=== PATIENT | female | born 1960 | race Caucasian/White ===

== ENCOUNTER 2019-09-09 20:44 | Inpatient (IN) | payer OTHER ==
[~2019-09-09] VITALS: Ht 167.7 cm; Wt 42.3 kg
[~2019-09-09 20:44] MED LIST: ASP81CT; CLD600T; IBP800T
[2019-09-09] MEDS ORDERED: LACTATED RINGERS 1,000 ML IV ONE (21:26)
[2019-09-09] MEDS ORDERED: KETOROLAC 30 MG/ML VIAL IVP ONE (21:30)
[2019-09-09 21:42] LABS: BASOPHILS % (AUTO) 0 % (0-10); EOSINOPHILS # (AUTO) 0.2 10^3/uL (0.0-0.3); EOSINOPHILS % (AUTO) 2 % (0-10); HEMATOCRIT 39 % (35-52); HEMOGLOBIN 13.6 G/DL (11.5-16.0); LYMPHOCYTES # (AUTO) 2.9 X 10^3 (1.0-4.0); LYMPHOCYTES % (AUTO) 30 % (12-44); MEAN CORPUSCULAR HEMOGLOBIN 35 PG (25-34); MEAN CORPUSCULAR HGB CONC 35 G/DL (32-36); MEAN CORPUSCULAR VOLUME 99 FL (80-99); MEAN PLATELET VOLUME 9.2 FL (7.4-10.4); MONOCYTES # (AUTO) 0.7 X 10^3 (0.0-1.0); MONOCYTES % (AUTO) 7 % (0-12); NEUTROPHILS # (AUTO) 5.8 X 10^3 (1.8-7.8); NEUTROPHILS % (AUTO) 61 % (42-75); PLATELET COUNT 373 10^3/uL (130-400); RED CELL DISTRIBUTION WIDTH 11.4 % (10.0-14.5); WHITE BLOOD COUNT 9.6 10^3/uL (4.3-11.0)
[2019-09-09 21:42] LABS: BILIRUBIN,URINE NEGATIVE (NEGATIVE); CLARITY,URINE CLEAR; COLOR,URINE YELLOW; GLUCOSE, URINE (UA) NEGATIVE (NEGATIVE); KETONES,URINE NEGATIVE (NEGATIVE); LEUKOCYTE ESTERASE ,URINE 2+ (NEGATIVE); NITRITE,URINE NEGATIVE (NEGATIVE); PH,URINE 5 (5-9); PROTEIN,URINE NEGATIVE (NEGATIVE)
[2019-09-09 21:57] LABS: ALANINE AMINOTRANSFERASE 16 U/L (0-55); ALKALINE PHOSPHATASE 126 U/L (40-136); AMYLASE 56 U/L (25-125); BILIRUBIN,TOTAL 0.2 MG/DL (0.1-1.0); BUN/CREATININE RATIO 26; CALCIUM 8.8 MG/DL (8.5-10.1); CARBON DIOXIDE 25 MMOL/L (21-32); CHLORIDE 100 MMOL/L (98-107); CREATININE SERUM 0.61 MG/DL (0.60-1.30); GFR ESTIMATED > 60; GLUCOSE 86 MG/DL (70-105); LIPASE 23 U/L (8-78); MAGNESIUM 1.9 MG/DL (1.6-2.4); POTASSIUM 3.7 MMOL/L (3.6-5.0); SODIUM 135 MMOL/L (135-145); TOTAL PROTEIN 6.8 GM/DL (6.4-8.2)
[2019-09-09 21:59] LABS: AMPHETAMINE SCREEN, URINE NEGATIVE (NEGATIVE); BACTERIA,URINE TRACE /HPF; BARBITURATE SCREEN URINE NEGATIVE (NEGATIVE); BENZODIAZEPINES SCREEN URINE NEGATIVE (NEGATIVE); CANNABINOID SCREEN, URINE NEGATIVE (NEGATIVE); COCAINE SCREEN URINE NEGATIVE (NEGATIVE); METHADONE STAT NEGATIVE (NEGATIVE); METHAMPHETAMINE SCREEN URINE S NEGATIVE (NEGATIVE); OPIATE SCREEN URINE NEGATIVE (NEGATIVE); OXYCODONE STAT NEGATIVE (NEGATIVE); PROPOXYPHENE STAT NEGATIVE (NEGATIVE); TRICYCLIC ANTIDEPRESSANTS SCRE NEGATIVE (NEGATIVE)
[2019-09-09 22:00] LABS: TRICHOMONAS,URINE LARGE /HPF
[2019-09-09 22:01] LABS: INR 0.9 (0.8-1.4); PROTHROMBIN TIME PATIENT 12.9 SEC (12.2-14.7)
[2019-09-09 22:02] LABS: ACETAMINOPHEN < 10 UG/ML (10-30)
[2019-09-09] MEDS ORDERED: cefTRIAXone FOR IV USE 1,000 MG in WATER (STERILE) FOR INJECTION 10 ML IV ONE (22:45)
[2019-09-09] MEDS ORDERED: metroNIDAZOLE 500MG/100ML IVPB 100 ML IV ONE (22:45)
[2019-09-09] MEDS ORDERED: cefTRIAXone 1,000 MG IV (ROCEPHIN) VIAL ONE (22:46)
[2019-09-09] MEDS ORDERED: WATER (STERILE) FOR INJECTION 10 ML ONE (22:46)
[2019-09-09] MEDS ORDERED: PANTOPRAZOLE 40 MG (PROTONIX) VIAL IV ONE (23:15)
[2019-09-10] VITALS (13 sets, daily range): BP systolic 96–129; BP diastolic 55–79
--- NOTE | 2019-09-10 00:07 | Consultation - Surgery ---
History of Present Illness History of Present Illness Patient Consulted On(eunice/time) 09/09/19 23:58 Time Seen by Provider: 23:39 History of Present Illness Surgery asked to consult regarding LUQ. HPI: Pt is a 59 yo female who presented to the ER with severe LUQ pain, rating it as 10 out of 10. Pt states she was just sitting watching football, drinking a beer "when it came out of nowhere". Pt states last week she "had a bug" with nausea and vomiting but all that eventually went away. She states she went to work today and had no problems. Pt states she has never had pain like this before. She is not sure what makes it worse, only the pain meds have so far made the pain better. Pain does not radiate anywhere. Allergies and Home Medications Allergies Coded Allergies: No Known Drug Allergies (Unverified , 09/09/19) Patient Home Medication List Home Medication List Reviewed: Yes Past Dkdflix-Cskjtk-Jytmmf Hx Patient Social History Alcohol Use: Regular Use Recreational Drug Use: No Smoking Status: Current Everyday Smoker (2 ppd) Type Used: Cigarettes Recent Foreign Travel: No Contact w/Someone Who Travel: No Recent Infectious Disease Expo: No Recent Hopitalizations: No Seasonal Allergies Seasonal Allergies: No Surgeries History of Surgeries: Yes Surgeries: Coronary Stent Respiratory History of Respiratory Disorde: No Cardiovascular History of Cardiac Disorders: No Neurological History of Neurological Disord: No 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 Genitourinary History of Genitourinary Disor: No Gastrointestinal History of Gastrointestinal Di: No Musculoskeletal History of Musculoskeletal Dis: No Endocrine History of Endocrine Disorders: No HEENT History of HEENT Disorders: No Cancer History of Cancer: No Psychosocial History of Psychiatric Problem: No Integumentary History of Skin or Integumenta: No Blood Transfusions History of Blood Disorders: No Family Medical History Significant Family History: Cancer (Father had Prostate CA), Diabetes (Father), Hypertension (Mother) Review of Systems-General Constitutional: No chills, No diaphoresis; weakness EENTM: No mouth pain, No mouth swelling, No epistaxis Respiratory: No cough, No dyspnea on exertion, No hemoptysis, No short of breath Cardiovascular: No chest pain, No edema, No palpitations Gastrointestinal: LUQ; No dysphagia, No hematemesis, No jaundice; nausea, vomiting Genitourinary: No dysuria, No frequency, No hematuria Musculoskeletal: back pain, joint pain, joint swelling, muscle stiffness Skin: No change in color, No change in hair/nails Psychiatric/Neurological: Denies Anxiety, Denies Depressed, Denies Seizure, Denies Tremors Other Pt denies any history of abnormal bleeding or bruising Physical Exam-General Problems Physical Exam Vital Signs Vital Signs - First Documented 09/09/19 21:00 Temp 36.0 Pulse 73 Resp 18 B/P (MAP) 152/89 (110) Pulse Ox 97 Capillary Refill : Less Than 3 Seconds General Appearance: mild distress, thin Eyes: Bilateral Eye PERRL, Bilateral Eye EOMI HEENT: pharynx normal; No scleral icterus (R), No scleral icterus (L) Neck: non-tender, full range of motion, supple Respiratory: chest non-tender, lungs clear, normal breath sounds, no respiratory distress, no accessory muscle use Cardiovascular: regular rate, rhythm, no murmur Gastrointestinal: normal bowel sounds, soft, no organomegaly, tenderness (LUQ) Back: no CVA tenderness, no vertebral tenderness Extremities: normal range of motion, normal inspection, no pedal edema, no calf tenderness 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, no motor/sensory deficits, alert, normal mood/affect, oriented x 3 Skin: normal color, warm/dry Lymphatic: no adenopathy (neck, axilla or groin) Data Review Labs Laboratory Tests 09/09/19 21:15: White Blood Count 9.6, Red Blood Count 3.93L, Hemoglobin 13.6, Hematocrit 39, Mean Corpuscular Volume 99, Mean Corpuscular Hemoglobin 35H, Mean Corpuscular Hemoglobin Concent 35, Red Cell Distribution Width 11.4, Platelet Count 373, Mean Platelet Volume 9.2, Neutrophils (%) (Auto) 61, Lymphocytes (%) (Auto) 30, Monocytes (%) (Auto) 7, Eosinophils (%) (Auto) 2, Basophils (%) (Auto) 0, Neutrophils # (Auto) 5.8, Lymphocytes # (Auto) 2.9, Monocytes # (Auto) 0.7, Eosinophils # (Auto) 0.2, Basophils # (Auto) 0.0, Prothrombin Time 12.9, INR Comment 0.9, Activated Partial Thromboplast Time 29, Sodium Level 135, Potassium Level 3.7, Chloride Level 100, Carbon Dioxide Level 25, Anion Gap 10, Blood Urea Nitrogen 16, Creatinine 0.61, Estimat Glomerular Filtration Rate > 60, BUN/Creatinine Ratio 26, Glucose Level 86, Calcium Level 8.8, Corrected Calcium 8.8, Magnesium Level 1.9, Total Bilirubin 0.2, Aspartate Amino Transf (AST/SGOT) 15, Alanine Aminotransferase (ALT/SGPT) 16, Alkaline Phosphatase 126, Total Protein 6.8, Albumin 4.0, Amylase Level 56, Lipase 23, Acetaminophen Level < 10L , Serum Alcohol 118H 09/09/19 21:30: Urine Color YELLOW, Urine Clarity CLEAR, Urine pH 5, Urine Specific [place] 1.015L, Urine Protein NEGATIVE, Urine Glucose (UA) NEGATIVE, Urine Ketones NEGATIVE, Urine Nitrite NEGATIVE, Urine Bilirubin NEGATIVE, Urine Urobilinogen NORMAL, Urine Leukocyte Esterase 2+H, Urine RBC (Auto) NEGATIVE, Urine RBC NONE, Urine WBC 5-10H, Urine Squamous Epithelial Cells 10-25H, Urine Crystals NONE, Urine Bacteria TRACE, Urine Casts NONE, Urine Mucus MODERATEH, Urine Trichomonas LARGEH, Urine Culture Indicated NO, Urine Opiates Screen NEGATIVE, Urine Oxycodone Screen NEGATIVE, Urine Methadone Screen NEGATIVE, Urine Propoxyphene Screen NEGATIVE, Urine Barbiturates Screen NEGATIVE, Ur Tricyclic Antidepressants Screen NEGATIVE, Urine Phencyclidine Screen NEGATIVE, Urine Amphetamines Screen NEGATIVE, Urine Methamphetamines Screen NEGATIVE, Urine Benzodiazepines Screen NEGATIVE, Urine Cocaine Screen NEGATIVE, Urine Cannabinoids Screen NEGATIVE Assessment/Plan Assessment/Plan Assessment/Plan LUQ pain Gastric Wall thickening Pt has never had an EGD or colonoscopy; an initial Stat Rad Reading supposedly called the CT pending gastric perforation. She is being admitted to medicine with IVF, anti-emetics and pain control. She will need IV Protonix BID. She needs at least an EGD and I recommend a colonoscopy; might be able to do EGD during this admission. KAMILLE INMAN DO Sep 10, 2019 00:07
--- NOTE | 2019-09-10 00:45 | NUR ---
DAKSHA ZAVALA admitted to room 422-1, with an admitting diagnosis of abdominal pain, gastric ulcer, uti, colitis, alcoholism, on 09/09/19 from er via wheelchair, accompanied by er staff. DAKSHA ZAVALA introduced to surroundings, call light, bed controls, phone, TV, temperature control, lights, meal times, smoking policy, visitor policy, side rail policy, bathrooms and showers. Patient Rights given to patient in the handbook. DAKSHA ZAVALA verbalizes understanding that [facility] is not responsible for the loss or damage to any personal effects or valuables that are kept in the patients possession during their hospitalization.
[2019-09-10] MEDS ORDERED: 1/2 NS IV SOLUTION 1,000 ML IV PRN (01:22)
[2019-09-10] MEDS: D5 1/2 NS W/KCL 20 MEQ/L 1,000 ML IV SCH ×2 (01:26→17:18)
[2019-09-10] MEDS: CIPROFLOXACIN 400 MG/D5W 200 ML (PRE-MIX) IV SCH ×2 (01:26→14:18)
[2019-09-10] MEDS ORDERED: ONDANSETRON 4 MG (ZOFRAN) ORAL DISSOLVE TAB SL PRN (01:30)
[2019-09-10] MEDS ORDERED: LORazepam INJ 2 MG/ML (ATIVAN) VIAL IV PRN (01:30)
[2019-09-10] MEDS ORDERED: SENNA W/DOCUSATE (SENOKOT S) TABLET PO PRN (01:30)
[2019-09-10] MEDS ORDERED: LORazepam 1 MG (ATIVAN) TAB PO PRN (01:30)
[2019-09-10] MEDS ORDERED: LORazepam INJ 2 MG/ML (ATIVAN) VIAL IM/IV PRN (01:30)
[2019-09-10] MEDS ORDERED: ANTACID SUSP 30 ML UDC (MYLANTA) PO PRN (01:30)
[2019-09-10] MEDS ORDERED: ONDANSETRON 4 MG/2 ML (SDV) Z0FRAN IV PRN ×2 (01:30)
[2019-09-10] MEDS ORDERED: D5 1/2 NS 1000 ML IV SOLUTION 1,000 ML IV PRN (01:30)
[2019-09-10] MEDS ORDERED: ASPI-586 PO (04:13)
[2019-09-10 05:59] LABS: BASOPHILS % (AUTO) 0 % (0-10); EOSINOPHILS # (AUTO) 0.1 10^3/uL (0.0-0.3); EOSINOPHILS % (AUTO) 1 % (0-10); HEMATOCRIT 37 % (35-52); HEMOGLOBIN 12.5 G/DL (11.5-16.0); LYMPHOCYTES # (AUTO) 1.2 X 10^3 (1.0-4.0); LYMPHOCYTES % (AUTO) 12 % (12-44); MEAN CORPUSCULAR HEMOGLOBIN 34 PG (25-34); MEAN CORPUSCULAR HGB CONC 34 G/DL (32-36); MEAN CORPUSCULAR VOLUME 100 FL (80-99); MEAN PLATELET VOLUME 9.2 FL (7.4-10.4); MONOCYTES # (AUTO) 0.6 X 10^3 (0.0-1.0); MONOCYTES % (AUTO) 6 % (0-12); NEUTROPHILS # (AUTO) 8.5 X 10^3 (1.8-7.8); NEUTROPHILS % (AUTO) 81 % (42-75); PLATELET COUNT 327 10^3/uL (130-400); RED CELL DISTRIBUTION WIDTH 11.5 % (10.0-14.5); WHITE BLOOD COUNT 10.5 10^3/uL (4.3-11.0)
[2019-09-10] MEDS: metroNIDAZOLE 500 MG/100 ML IVPB (PRE-MIX) IV SCH ×3 (06:05→23:24)
[2019-09-10 06:15] LABS: ALANINE AMINOTRANSFERASE 14 U/L (0-55); ALBUMIN 3.4 GM/DL (3.2-4.5); ALKALINE PHOSPHATASE 111 U/L (40-136); BILIRUBIN,TOTAL 0.4 MG/DL (0.1-1.0); BUN/CREATININE RATIO 21; CARBON DIOXIDE 23 MMOL/L (21-32); CHLORIDE 103 MMOL/L (98-107); CREATININE SERUM 0.57 MG/DL (0.60-1.30); GFR ESTIMATED > 60; GLUCOSE 123 MG/DL (70-105); POTASSIUM 3.8 MMOL/L (3.6-5.0); SODIUM 134 MMOL/L (135-145); TOTAL PROTEIN 5.8 GM/DL (6.4-8.2)
--- NOTE | 2019-09-10 06:54 | ED Abdominal Pain ---
General Chief Complaint: Abdominal/GI Problems Stated Complaint: ABDOMINAL PAIN; GASTRIC ULCER; UTI; ALCOHOLISM Nursing Triage Note: c/o pain in LLQ, STARTED THIS EVENING, SHARP PAIN 06/30 Sepsis Screen: No Definite Risk Source of Information: Patient History of Present Illness Date Seen by Provider: Sep 09, 2019 Time Seen by Provider: 21:05 Initial Comments PT ARRIVES VIA POV FROM HOME STATES SHE STARTED GETTING SICK LAST WEEK-HAD NAUSEA, AND DRY HEAVES. GOT BETTER AFTER A COUPLE OF DAYS STATES SHE WAS AT WORK TODAY AND HAD ALOT OF PAIN IN MID UPPER ABDOMEN, BUT WENT AWAY STATES TODAY, SHE GOT HOME FROM WORK, SAT DOWN AND DRANK " A BEER" AND BEGAN HAVING VERY SUDDEN ONSET OF SEVERE SHARP PAIN IN LLQ. PAIN BEGAN AROUND 1945 TONIGHT PT IS WORSE WITH MOVEMENTS OR STANDING UP STRAIGHT. NO NAUSEA TODAY. HAD NORMAL BM THIS AM NO FEVER TODAY NO URINARY SYMPTOMS HAS NOT TAKEN ANYTHING FOR SYMPTOMS NO HISTORY OF GI PROBLEMS STATES SHE HAD HER APPENDIX OUT MANY YEARS AGO, AND HAD BTL YEARS AGO. OTHERWISE NO ABDOMINAL SURGERIES DENIES ANY HISTORY OF GI PROBLEMS PT STATES SHE SMOKES 2 PPD, AND DRINKS AT LEAST A 6 PACK OF BEER EVERY DAY. DENIES DRUG USE PCP: DR. KAUR, NOT SEEN FOR ABOUT 2 YEARS Allergies and Home Medications Allergies Coded Allergies: No Known Drug Allergies (Unverified , 09/09/19) Home Medications Aspirin 81 Mg Tablet.dr, 81 MG PO DAILY, (Reported) Patient Home Medication List Home Medication List Reviewed: Yes Review of Systems Review of Systems Constitutional: no symptoms reported; No chills, No diaphoresis, No dizziness, No fever EENTM: No Symptoms Reported Respiratory: No Symptoms Reported; Denies Cough, Denies Shortness of Air Cardiovascular: No Symptoms Reported; Denies Chest Pain, Denies Edema, Denies Lightheadedness, Denies Palpitations, Denies Syncope Gastrointestinal: See HPI, Abdominal Pain; Denies Constipated, Denies Diarrhea; Nausea; Denies Poor Fluid Intake, Denies Vomiting Genitourinary: No Symptoms Reported Musculoskeletal: no symptoms reported; No back pain Skin: no symptoms reported Psychiatric/Neurological: No Symptoms Reported Endocrine: No Symptoms Reported Hematologic/Lymphatic: No Symptoms Reported Past Dylnave-Rqimhj-Zwyoid Hx Past Med/Social Hx: Reviewed and Corrections made Patient Social History Alcohol Use: Regular Use (AT LEAST A 6 PACK OF BEER/DAY, PER PT ON 09/09/19) Alcohol Beverage of Choice: Beer Recreational Drug Use: No Smoking Status: Current Everyday Smoker (2 PPD) Type Used: Cigarettes (2 PPD) Recent Foreign Travel: No Contact w/Someone Who Travel: No Recent Infectious Disease Expo: No Recent Hopitalizations: No Physical Abuse: No Sexual Abuse: No Mistreated: No Fear: No Seasonal Allergies Seasonal Allergies: No Past Medical History Surgeries: Yes (CARDIAC CATH 11 YEARS AGO--NO INTERVENTION, PER PT ON 09/09/19) Appendectomy, Cardiac, Tubal Ligation Respiratory: No Cardiac: No Neurological: No 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 oz. kg; 15.04 BMI Method: General Appearance: no apparent distress, thin, other (REEKS OF ETOH, SMILLING, TALKS NON-STOP AT LENGTH. DOES NOT APPEAR TO BE IN ANY DISCOMFORT OR DISTRESS) HEENT: PERRL/EOMI Neck: normal inspection Respiratory: normal breath sounds, no respiratory distress, no accessory muscle use Cardiovascular: normal peripheral pulses, regular rate, rhythm, no edema, no JVD, no murmur Gastrointestinal: normal bowel sounds, soft, no organomegaly, no pulsatile mass; No distended, No guarding, No rebound; tenderness (MODERATE LLQ AND SUPRAPUBIC TENDERNESS, MILD EPIGASTRIC TENDERNESS); No hernia, No mass Extremities: normal range of motion, non-tender, normal inspection, no pedal edema, no calf tenderness, normal capillary refill Back: normal inspection, no CVA tenderness, no vertebral tenderness 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, no motor/sensory deficits, alert, normal mood/affect, oriented x 3 Skin: normal color, warm/dry Progress/Results/Core Measures Results/Orders Lab Results Laboratory Tests Test 09/09/19 21:15 09/09/19 21:30 Range/Units White Blood Count 9.6 4.3-11.0 10^3/uL Red Blood Count 3.93 L 4.35-5.85 10^6/uL Hemoglobin 13.6 11.5-16.0 G/DL Hematocrit 39 35-52 % Mean Corpuscular Volume 99 80-99 FL Mean Corpuscular Hemoglobin 35 H 25-34 PG Mean Corpuscular Hemoglobin Concent 35 32-36 G/DL Red Cell Distribution Width 11.4 10.0-14.5 % Platelet Count 373 130-400 10^3/uL Mean Platelet Volume 9.2 7.4-10.4 FL Neutrophils (%) (Auto) 61 42-75 % Lymphocytes (%) (Auto) 30 12-44 % Monocytes (%) (Auto) 7 0-12 % Eosinophils (%) (Auto) 2 0-10 % Basophils (%) (Auto) 0 0-10 % Neutrophils # (Auto) 5.8 1.8-7.8 X 10^3 Lymphocytes # (Auto) 2.9 1.0-4.0 X 10^3 Monocytes # (Auto) 0.7 0.0-1.0 X 10^3 Eosinophils # (Auto) 0.2 0.0-0.3 10^3/uL Basophils # (Auto) 0.0 0.0-0.1 10^3/uL Prothrombin Time 12.9 12.2-14.7 SEC INR Comment 0.9 0.8-1.4 Activated Partial Thromboplast Time 29 24-35 SEC Sodium Level 135 135-145 MMOL/L Potassium Level 3.7 3.6-5.0 MMOL/L Chloride Level 100 98-107 MMOL/L Carbon Dioxide Level 25 21-32 MMOL/L Anion Gap 10 5-14 MMOL/L Blood Urea Nitrogen 16 7-18 MG/DL Creatinine 0.61 0.60-1.30 MG/DL Estimat Glomerular Filtration Rate > 60 BUN/Creatinine Ratio 26 Glucose Level 86 70-105 MG/DL Calcium Level 8.8 8.5-10.1 MG/DL Corrected Calcium 8.8 8.5-10.1 MG/DL Magnesium Level 1.9 1.6-2.4 MG/DL Total Bilirubin 0.2 0.1-1.0 MG/DL Aspartate Amino Transf (AST/SGOT) 15 5-34 U/L Alanine Aminotransferase (ALT/SGPT) 16 0-55 U/L Alkaline Phosphatase 126 40-136 U/L Total Protein 6.8 6.4-8.2 GM/DL Albumin 4.0 3.2-4.5 GM/DL Amylase Level 56 25-125 U/L Lipase 23 8-78 U/L Acetaminophen Level < 10 L 10-30 UG/ML Serum Alcohol 118 H <10 MG/DL Urine Color YELLOW Urine Clarity CLEAR Urine pH 5 5-9 Urine Specific [place] 1.015 L 1.016-1.022 Urine Protein NEGATIVE NEGATIVE Urine Glucose (UA) NEGATIVE NEGATIVE Urine Ketones NEGATIVE NEGATIVE Urine Nitrite NEGATIVE NEGATIVE Urine Bilirubin NEGATIVE NEGATIVE Urine Urobilinogen NORMAL NORMAL MG/DL Urine Leukocyte Esterase 2+ H NEGATIVE Urine RBC (Auto) NEGATIVE NEGATIVE Urine RBC NONE /HPF Urine WBC 5-10 H /HPF Urine Squamous Epithelial Cells 10-25 H /HPF Urine Crystals NONE /LPF Urine Bacteria TRACE /HPF Urine Casts NONE /LPF Urine Mucus MODERATE H /LPF Urine Trichomonas LARGE H /HPF Urine Culture Indicated NO Urine Opiates Screen NEGATIVE NEGATIVE Urine Oxycodone Screen NEGATIVE NEGATIVE Urine Methadone Screen NEGATIVE NEGATIVE Urine Propoxyphene Screen NEGATIVE NEGATIVE Urine Barbiturates Screen NEGATIVE NEGATIVE Ur Tricyclic Antidepressants Screen NEGATIVE NEGATIVE Urine Phencyclidine Screen NEGATIVE NEGATIVE Urine Amphetamines Screen NEGATIVE NEGATIVE Urine Methamphetamines Screen NEGATIVE NEGATIVE Urine Benzodiazepines Screen NEGATIVE NEGATIVE Urine Cocaine Screen NEGATIVE NEGATIVE Urine Cannabinoids Screen NEGATIVE NEGATIVE My Orders Orders - STEFANIA DE GUZMAN DO Ed Iv/Invasive Line Start (09/09/19 21:26) Acetaminophen (09/09/19 21:26) Alcohol (09/09/19 21:26) Amylase (09/09/19 21:26) Cbc With Automated Diff (09/09/19:26) Comprehensive Metabolic Panel (09/09/19:26) Drug Screen Stat (Urine) (09/09/19:26) Lipase (09/09/19:26) Magnesium (09/09/19 21:26) Protime With Inr (09/09/19 21:26) Partial Thromboplastin Time (09/09/19 21:26) Ua Culture If Indicated (09/09/19 21:26) Ed Iv/Invasive Line Start (09/09/19 21:26) Lactated Ringers (Lr 1000 Ml Iv Solution (09/09/19 21:26) Ct Abd/Pelvis Wo(Kidney Stone) (09/09/19 21:26) Acute Abd Series (09/09/19 21:26) Ketorolac Injection (Toradol Injection) (09/09/19 21:30) Ceftriaxone For Iv Use (Rocephin For I (09/09/19 22:45) Metronidazole 500mg/100ml Ivpb (Flagyl 5 (09/09/19 22:45) Ceftriaxone For Iv Use (Rocephin For I (09/09/19 22:46) Water (Sterile) For Injection (Sterile W (09/09/19 22:46) Pantoprazole Injection (Protonix Injecti (09/09/19 23:15) Medications Given in ED Current Medications Medications Dose Ordered Sig/Missy Route Start Time Stop Time Status Last Admin Dose Admin Ceftriaxone Sodium 1000 mg/ Sterile Water 10 ml @ 200 mls/hr ONCE ONCE IV 09/09/19 22:45 09/09/19 23:08 DC 09/09/19 22:52 200 MLS/HR Ketorolac Tromethamine 30 mg ONCE ONCE IVP 09/09/19 21:30 09/09/19 21:31 DC 09/09/19 22:09 30 MG Lactated Ringer's 1,000 ml @ 0 mls/hr Q0M ONCE IV 09/09/19 21:26 09/09/19 21:31 DC 09/09/19 22:09 1,000 MLS/HR Metronidazole 100 ml @ 100 mls/hr ONCE ONCE IV 09/09/19 22:45 09/09/19 23:44 DC 09/09/19 22:52 100 MLS/HR Pantoprazole 80 mg ONCE ONCE IV 09/09/19 23:15 09/09/19 23:16 DC 09/09/19 23:41 80 MG Vital Signs/I&O 09/09/19 21:00 Temp 36.0 Pulse 73 Resp 18 B/P (MAP) 152/89 (110) Pulse Ox 97 09/10/19 00:00 Intake Total 1010 ml Balance 1010 ml Blood Pressure Mean: 91 Progress Progress Note : Progress Note GIVEN TORADOL FOR PAIN WITH COMPLETE RELIEF OF PAIN NO DETERIORATION IN PT'S CONDITION DURING ER STAY PT HAD NO OTHER COMPLAINTS FOR REMAINDER OF ER STAY Diagnostic Imaging Comments ABDOMEN XRAYS--NA ACUTE PROCESS, PENDING RADIOLOGIST REVIEW CT ABDOMEN / PELVIS--EVIDENCE OF GASTRIC ULCER WITH ABNORMAL WALL THICKENING OF GASTRIC ANTRUM, ASSOCIATED WITH GAS AND FLUID EXTENDING TO SEROSAL SURFACE OF GREATER CURVATURE OF STOMACH, STRANDING OF MESENTERIC FAC. NO FREE AIR OR FLUID COLLECTION. SUSPICIOUS FOR IMPENDING PERFORATION--PER RADIOLOGIST VIA PHONE AT 2304 Reviewed: Reviewed by Me, Discussed w/Radiologist, Reviewed/Discussed Departure Communication (Admissions) 2307--SPOKE WITH DR. INMAN, ALREADY HERE IN ER TO SEE ANOTHER PT. HE WILL BE IN TO SEE PT SHORTLY. 2312--SPOKE WITH DR. ULLOA, HOSPITALIST. ACCEPTS PT FOR ADMIT. 2354--DR. INMAN IN TO SEE PT. Impression Primary Impression: Gastric ulcer Additional Impressions: UTI (urinary tract infection) Alcohol intoxication in active alcoholic Disposition: ADMITTED INPATIENT Condition: Improved Admissions Decision to Admit Reason: Admit from ER (General) Decision to Admit/Date: Sep 09, 2019 Time/Decision to Admit Time: 23:15 Departure-Patient Inst. Referrals: NO,LOCAL PHYSICIAN (PCP) Primary Care Physician STEFANIA DE GUZMAN DO Sep 10, 2019 06:54
--- NOTE | 2019-09-10 08:02 | Diagnostic Imaging Report ---
PROCEDURE: CT urinary tract, rule out kidney stone. TECHNIQUE: Multiple contiguous axial images were obtained through the abdomen and pelvis without the use of intravenous contrast. Auto Exposure Controls were utilized during the CT exam to meet ALARA standards for radiation dose reduction. INDICATION: Abdominal pain. FINDINGS: Unenhanced images of the liver and spleen reveal no focal abnormality. There is no evidence of gallbladder, pancreatic, adrenal gland or acute renal abnormality. There is extensive mural thickening throughout the distal body and antrum of the stomach. There is apparent ulceration along the greater curvature of the stomach anteriorly with gas reaching the serosal surface. No definite free fluid is identified. There is no organized fluid collection in the abdomen or pelvis. Bladder is unopacified but otherwise unremarkable. There is no evidence of appendiceal region inflammation. IMPRESSION: Findings are compatible with advanced gastritis and apparent peptic ulcer disease with ventral antral ulceration resulting in marked thinning of the anterior wall. Endoscopic assessment would be of use. Dictated by: Dictated on workstation # [id number]
--- NOTE | 2019-09-10 08:26 | Diagnostic Imaging Report ---
INDICATION: Abdominal pain. COMPARISON: CT abdomen and pelvis performed earlier same day. FINDINGS: Lungs are clear. No pleural effusion or pneumothorax. Normal cardiomediastinal silhouette. No free intraperitoneal air. Nonobstructive bowel gas pattern. No radiopaque urinary tract calculi. Normal regional skeleton. IMPRESSION: 1. No acute process by radiography. 2. Please see report for CT abdomen and pelvis for details of gastritis and gastric ulcer. Dictated by: Dictated on workstation # [id number]
--- NOTE | 2019-09-10 08:28 | Diagnostic Imaging Report ---
INDICATION: Cough. Upright AP view of the chest is obtained with comparison made to study of one day earlier. FINDINGS: Heart size remains within normal limits. Pulmonary vascularity has increased and there are prominent interstitial markings throughout the lungs. No pneumothorax or consolidation is identified. Degenerative changes are present at the right acromioclavicular joint. IMPRESSION: Increasing interstitial markings in the lungs may be due to edema or pneumonitis. No consolidation, pneumothorax or other adverse change is identified. Dictated by: Dictated on workstation # [id number]
--- NOTE | 2019-09-10 08:48 | History & Physical ---
History of Present Illness History of Present Illness Reason for visit/HPI Patient last night at 7 p.m. had severe left lower quadrant pain. Patient came out to the emergency room. CAT scan shows gastric ulcer. Previous surgeries appendectomy and tubal ligation. Family history mother diabetic in bed diabetic and cancer prostatic. This morning pain in the left lower quadrant. Patient never had EGD or colonoscopy. Patient did drink some beers yesterday Date of Admission Sep 09, 2019 at 23:15 Time Seen by a Provider: 08:43 I consulted on this patient on 09/10/19 08:43 Attending Physician Jeramie Kaur DO Admitting Physician No,Local Physician Consult Allergies and Home Medications Allergies Coded Allergies: No Known Drug Allergies (Unverified , 09/09/19) Home Medications Aspirin 81 Mg Tablet.dr, 81 MG PO DAILY, (Reported) Patient Home Medication List Home Medication List Reviewed: Yes Past Azewwkh-Okmwgv-Mnnrjc Hx Past Med/Social Hx: Reviewed and Corrections made Patient Social History Alcohol Use: Regular Use (AT LEAST A 6 PACK OF BEER/DAY, PER PT ON 09/09/19) Alcohol Beverage of Choice: Beer Recreational Drug Use: No Smoking Status: Current Everyday Smoker (2 PPD) Type Used: Cigarettes (2 PPD) Recent Foreign Travel: No Contact w/other who traveled: No Recent Hopitalizations: No Recent Infectious Disease Expo: No Seasonal Allergies Seasonal Allergies: No Past Medical History Surgeries: Appendectomy, Cardiac, Tubal Ligation Currently Using BIPAP: No Tubal Ligation, Menopausal History of Blood Disorders: No Family History Diabetes mellitus 19 MOTHER FH: prostate cancer 19 FATHER Hypertension 19 FATHER Cancer (Father had Prostate CA), Diabetes (Father), Hypertension (Mother) Review of Systems Constitutional: no symptoms reported EENTM: no symptoms reported Respiratory: no symptoms reported Cardiovascular: no symptoms reported Gastrointestinal: LLQ Genitourinary: no symptoms reported : No Physical Exam Vital Signs Vital Signs - First Documented 09/09/19 09/10/19 21:00 00:45 Temp 36.0 Pulse 73 Resp 18 B/P (MAP) 152/89 (110) Pulse Ox 97 O2 Delivery Room Air Capillary Refill : Less Than 3 Seconds Height, Weight, BMI Height: '" Weight: lbs. oz. kg; 15.04 BMI Method: General Appearance: No Apparent Distress, Thin Eyes: Bilateral Eye Normal Inspection HEENT: Normal ENT Inspection Neck: Full Range of Motion, Normal Inspection Respiratory: Chest Non Tender, Lungs Clear, No Accessory Muscle Use, No Respiratory Distress Cardiovascular: Regular Rate, Rhythm, No Murmur Gastrointestinal: Soft, Other (Abdominal pain and left lower quadrant this a.m.) Assessment/Plan Assessment and Plan Abdominal pain left lower quadrant. Elevated alcohol level. Gastric ulcer. Admission Diagnosis Admission Status: Inpatient Order (span 2 midnights) Reason for Inpatient Admission: Left lower quadrant abdominal pain. Vomiting. Ulcer gastric Clinical Quality Measures DVT/VTE Risk/Contraindication: Risk Factor Score Per Nursin RFS Level Per Nursing on Admit: 3=High JERAMIE KAUR DO Sep 10, 2019 08:48
[2019-09-10] MEDS: PANTOPRAZOLE 40 MG (PROTONIX) VIAL IV SCH ×2 (08:50→21:51)
[2019-09-10] MEDS ORDERED: THIAMINE INJECTION 100 MG, FOLIC ACID INJECTION 1 MG, MAGNESIUM SULFATE 2 GM, VITAMIN M... IV SCH ×5 (09:00)
[2019-09-10] MEDS: fentaNYL INJECTION 100 MCG/2 ML AMP IV PRN ×4 (10:27→21:50)
[2019-09-10] MEDS ORDERED: IBUP-2055 PO (11:09)
[2019-09-10] MEDS ORDERED: MULT1CAP27 PO (11:09)
--- NOTE | 2019-09-10 11:10 | NUR ---
SPOKE WITH PT WELL GOING THRU THE EXT MED HISTORY TO COMPLETE THE MED REC. PT STATES SHE DOES NOT TAKE ANY PRESCRIPTION MEDS. OTC MEDS: IBUPROFEN : 2 TABS Q 6 H PRN ASPIRIN 81M DAILY MTV: 1 DAILY
[2019-09-10] MEDS ORDERED: proPOfol 200 MG/20 ML (DIPRIVAN) VIAL IV ONE (13:16)
[2019-09-10] MEDS ORDERED: MIDAZOLAM 2 MG/2 ML (VERSED) VIAL ONE (13:16)
[2019-09-10] MEDS ORDERED: LACTATED RINGERS 1,000 ML IV ONE ×2 (13:17→13:45)
[2019-09-10] MEDS ORDERED: HURRICAINE EXT TUBE (BENZOCAINE) ONE (13:23)
--- NOTE | 2019-09-10 13:23 | Progress Note - Surgery ---
Subjective Time Seen by a Provider: 13:04 Subjective/Events-last exam Pt seen and examined, no new complaints...still has abdominal pain. States she is hungry and wants to eat. Review of Systems General: No Chills, No Night Sweats Pulmonary: No Dyspnea, No Cough Cardiovascular: No: Chest Pain, Palpitations Gastrointestinal: No: Nausea, Vomiting Objective Exam Vital Signs Date Time Temp Pulse Resp B/P (MAP) Pulse Ox O2 Delivery O2 Flow Rate FiO2 09/10/19 08:00 97 Room Air 09/10/19 08:00 36.5 71 18 128/73 (91) 97 Room Air 09/10/19 03:00 36.7 72 18 129/72 (91) 96 Room Air 09/10/19 02:06 36.8 68 16 108/67 (81) 96 Room Air 09/10/19 00:54 36.5 79 18 110/70 98 Room Air 09/10/19 00:53 36.5 79 18 110/70 (83) 98 Room Air 09/10/19 00:46 36.0 78 18 103/56 (110) 98 09/10/19 00:45 96 Room Air 09/09/19 21:00 36.0 73 18 152/89 (110) 97 I & O 09/10/19 07:00 Intake Total 1310 ml Output Total 600 ml Balance 710 ml Capillary Refill : Less Than 3 SecondsLess Than 3 Seconds General Appearance: No Apparent Distress, Thin HEENT: Normal ENT Inspection Neck: Full Range of Motion, Normal Inspection Respiratory: Chest Non Tender, Lungs Clear, No Accessory Muscle Use, No Respiratory Distress Cardiovascular: Regular Rate, Rhythm, No Murmur Gastrointestinal: normal bowel sounds, soft, no organomegaly, no pulsatile mass; No distended, No guarding, No rebound; tenderness (MODERATE LLQ AND SUPRAPUBIC TENDERNESS, MILD EPIGASTRIC TENDERNESS); No hernia, No mass Results Lab Laboratory Tests 09/09/19 21:15: White Blood Count 9.6, Red Blood Count 3.93L, Hemoglobin 13.6, Hematocrit 39, Mean Corpuscular Volume 99, Mean Corpuscular Hemoglobin 35H, Mean Corpuscular He moglobin Concent 35, Red Cell Distribution Width 11.4, Platelet Count 373, Mean Platelet Volume 9.2, Neutrophils (%) (Auto) 61, Lymphocytes (%) (Auto) 30, Monocytes (%) (Auto) 7, Eosinophils (%) (Auto) 2, Basophils (%) (Auto) 0, Neutrophils # (Auto) 5.8, Lymphocytes # (Auto) 2.9, Monocytes # (Auto) 0.7, Eosinophils # (Auto) 0.2, Basophils # (Auto) 0.0, Prothrombin Time 12.9, INR Co mment 0.9, Activated Partial Thromboplast Time 29, Sodium Level 135, Potassium Level 3.7, Chloride Level 100, Carbon Dioxide Level 25, Anion Gap 10, Blood Urea Nitrogen 16, Creatinine 0.61, Estimat Glomerular Filtration Rate > 60, BUN/Creatinine Ratio 26, Glucose Level 86, Calcium Level 8.8, Corrected Calcium 8.8, Magnesium Level 1.9, Total Bilirubin 0.2, Aspartate Amino Transf (AST/SGOT) 15, Alanine Aminotransferase (ALT/SGPT) 16, Alkaline Phosphatase 126, Total Protein 6.8, Albumin 4.0, Amylase Level 56, Lipase 23, Acetaminophen Level < 10L , Serum Alcohol 118H 09/09/19 21:30: Urine Color YELLOW, Urine Clarity CLEAR, Urine pH 5, Urine Specific [place] 1.015L, Urine Protein NEGATIVE, Urine Glucose (UA) NEGATIVE, Urine Ketones NEGATIVE, Urine Nitrite NEGATIVE, Urine Bilirubin NEGATIVE, Urine Urobilinogen NORMAL, Urine Leukocyte Esterase 2+H, Urine RBC (Auto) NEGATIVE, Urine RBC NONE, Urine WBC 5-10H, Urine Squamous Epithelial Cells 10-25H, Urine Crystals NONE, Urine Bacteria TRACE, Urine Casts NONE, Urine Mucus MODERATEH, Urine Trichomonas LARGEH, Urine Culture Indicated NO, Urine Opiates Screen NEGATIVE, Urine Oxycodone Screen NEGATIVE, Urine Methadone Screen NEGATIVE, Urine Propoxyphene Screen NEGATIVE, Urine Barbiturates Screen NEGATIVE, Ur Tricyclic Antidepressants Screen NEGATIVE, Urine Phencyclidine Screen NEGATIVE, Urine Amphetamines Screen NEGATIVE, Urine Methamphetamines Screen NEGATIVE, Urine Benzodiazepines Screen NEGATIVE, Urine Cocaine Screen NEGATIVE, Urine Cannabinoids Screen NEGATIVE 09/10/19 05:45: White Blood Count 10.5, Red Blood Count 3.71L, Hemoglobin 12.5, Hematocrit 37, Mean Corpuscular Volume 100H, Mean Corpuscular Hemoglobin 34, Mean Corpuscular Hemoglobin Concent 34, Red Cell Distribution Width 11.5, Platelet Count 327, Mean Platelet Volume 9.2, Neutrophils (%) (Auto) 81H, Lymphocytes (%) (Auto) 12, Monocytes (%) (Auto) 6, Eosinophils (%) (Auto) 1, Basophils (%) (Auto) 0, Neutrophils # (Auto) 8.5H, Lymphocytes # (Auto) 1.2, Monocytes # (Auto) 0.6, Eosinophils # (Auto) 0.1, Basophils # (Auto) 0.0, Sodium Level 134L, Potassium Level 3.8, Chloride Level 103, Carbon Dioxide Level 23, Anion Gap 8, Blood Urea Nitrogen 12, Creatinine 0.57L, Estimat Glomerular Filtration Rate > 60, BUN/C reatinine Ratio 21, Glucose Level 123H, Calcium Level 8.0L, Corrected Calcium 8.5, Total Bilirubin 0.4, Aspartate Amino Transf (AST/SGOT) 13, Alanine Aminotransferase (ALT/SGPT) 14, Alkaline Phosphatase 111, Total Protein 5.8L, Albumin 3.4 Assessment/Plan Assessment/Plan Assessment/Plan LUQ pain Gastric Wall thickening Plan to do EGD today, discussed risks and complications not limited to pain, bleeding, infection and even esophageal perforation. All questions answered to pt's satisfaction. Clinical Quality Measures DVT/VTE Risk/Contraindication: Risk Factor Score Per Nursin RFS Level Per Nursing on Admit: 3=High Contraindications-Pharm: Other *list below* KAMILLE INMAN DO Sep 10, 2019 13:23
[2019-09-10] MEDS ORDERED: HURRICAINE EXT TUBE (BENZOCAINE) XX ONE (13:45)
--- NOTE | 2019-09-10 14:10 | NUR ---
Pastoral care visit.
[2019-09-10] MEDS: SUCRALFATE 1 GM (CARAFATE) TAB PO SCH ×2 (16:15→21:51)
[2019-09-11] MEDS: CIPROFLOXACIN 400 MG/D5W 200 ML (PRE-MIX) IV SCH ×2 (01:34→13:13)
[2019-09-11] MEDS: D5 1/2 NS W/KCL 20 MEQ/L 1,000 ML IV SCH ×4 (01:34→17:54)
[2019-09-11] MEDS: fentaNYL INJECTION 100 MCG/2 ML AMP IV PRN ×3 (01:35→09:56)
[2019-09-11 04:00] VITALS: BP 119/68
[2019-09-11] MEDS: metroNIDAZOLE 500 MG/100 ML IVPB (PRE-MIX) IV SCH ×2 (06:06→14:48)
[2019-09-11] MEDS: SUCRALFATE 1 GM (CARAFATE) TAB PO SCH ×4 (06:08→20:43)
[2019-09-11 07:05] LABS: BASOPHILS % (AUTO) 0 % (0-10); EOSINOPHILS # (AUTO) 0.1 10^3/uL (0.0-0.3); EOSINOPHILS % (AUTO) 0 % (0-10); HEMATOCRIT 40 % (35-52); HEMOGLOBIN 13.1 G/DL (11.5-16.0); LYMPHOCYTES # (AUTO) 1.5 X 10^3 (1.0-4.0); LYMPHOCYTES % (AUTO) 10 % (12-44); MEAN CORPUSCULAR HEMOGLOBIN 33 PG (25-34); MEAN CORPUSCULAR HGB CONC 33 G/DL (32-36); MEAN CORPUSCULAR VOLUME 101 FL (80-99); MEAN PLATELET VOLUME 9.6 FL (7.4-10.4); MONOCYTES # (AUTO) 1.2 X 10^3 (0.0-1.0); MONOCYTES % (AUTO) 8 % (0-12); NEUTROPHILS # (AUTO) 12.5 X 10^3 (1.8-7.8); NEUTROPHILS % (AUTO) 82 % (42-75); PLATELET COUNT 394 10^3/uL (130-400); RED CELL DISTRIBUTION WIDTH 11.6 % (10.0-14.5); WHITE BLOOD COUNT 15.2 10^3/uL (4.3-11.0)
[2019-09-11 07:29] LABS: ALANINE AMINOTRANSFERASE 13 U/L (0-55); ALBUMIN 3.5 GM/DL (3.2-4.5); ALKALINE PHOSPHATASE 100 U/L (40-136); BILIRUBIN,TOTAL 0.5 MG/DL (0.1-1.0); BUN/CREATININE RATIO 7; CALCIUM 8.5 MG/DL (8.5-10.1); CARBON DIOXIDE 23 MMOL/L (21-32); CHLORIDE 102 MMOL/L (98-107); CREATININE SERUM 0.56 MG/DL (0.60-1.30); GFR ESTIMATED > 60; GLUCOSE 113 MG/DL (70-105); POTASSIUM 3.7 MMOL/L (3.6-5.0); SODIUM 136 MMOL/L (135-145); TOTAL PROTEIN 6.3 GM/DL (6.4-8.2)
[2019-09-11 08:00] VITALS: BP 109/62
[2019-09-11 08:06] LABS: BAND NEUTROPHILS 6 %; BASOPHILS % (MANUAL) 0 %; EOSINOPHILS % (MANUAL) 1 %; LYMPHOCYTES % (MANUAL) 11 %; MONOCYTES % (MANUAL) 10 %; NEUTROPHILS % (MANUAL) 72 %
--- NOTE | 2019-09-11 08:17 | Progress Note ---
Subjective Time Seen by a Provider: 08:15 Subjective/Events-last exam UA shows Trichomonas put on Flagyl. Patient states still has some soreness and abdomen. Comes and goes. 2 for all the time. White blood cell count elevated to 15,000. Abdomen is more rigid than yesterday Objective Exam Vital Signs Date Time Temp Pulse Resp B/P (MAP) Pulse Ox O2 Delivery O2 Flow Rate FiO2 09/11/19 08:08 97 Room Air 09/11/19 04:00 37.2 83 18 119/68 (85) 97 Room Air 09/10/19 23:35 37.7 77 18 101/55 (70) 95 Room Air 09/10/19 20:00 37.0 80 16 116/65 (82) 94 Room Air 09/10/19 20:00 Room Air 09/10/19 16:00 36.1 62 16 120/73 (89) 97 Room Air 09/10/19 13:50 59 18 100 Room Air 09/10/19 13:45 53 16 100 OxyMask 8 09/10/19 13:40 61 16 100 OxyMask 8 09/10/19 13:35 62 16 100 OxyMask 8 09/10/19 12:00 36.6 61 18 108/67 (81) 97 Room Air I & O 09/11/19 07:00 Intake Total 2000 ml Output Total 3500 ml Balance -1500 ml Capillary Refill : Less Than 3 SecondsLess Than 3 Seconds General Appearance: No Apparent Distress, Thin HEENT: Normal ENT Inspection Neck: Full Range of Motion Respiratory: No Accessory Muscle Use, No Respiratory Distress Cardiovascular: Regular Rate, Rhythm, No Murmur Gastrointestinal: guarding, other (More rigid than yesterday) Results Lab Laboratory Tests 09/11/19 05:26 Laboratory Tests 09/11/19 05:26: White Blood Count 15.2H, Red Blood Count 3.97L, Hemoglobin 13.1, Hematocrit 40, Mean Corpuscular Volume 101H, Mean Corpuscular Hemoglobin 33, Mean Corpuscular Hemoglobin Concent 33, Red Cell Distribution Width 11.6, Platelet Count 394, Mean Platelet Volume 9.6, Neutrophils (%) (Auto) 82H, Lymphocytes (%) (Auto) 10L , Monocytes (%) (Auto) 8, Eosinophils (%) (Auto) 0, Basophils (%) (Auto) 0, Neutrophils # (Auto) 12.5H, Lymphocytes # (Auto) 1.5, Monocytes # (Auto) 1.2H, E osinophils # (Auto) 0.1, Basophils # (Auto) 0.0, Neutrophils % (Manual) 72, Lymphocytes % (Manual) 11, Monocytes % (Manual) 10, Eosinophils % (Manual) 1, Basophils % (Manual) 0, Band Neutrophils 6, Macrocytosis SLIGHT, Sodium Level 136, Potassium Level 3.7, Chloride Level 102, Carbon Dioxide Level 23, Anion Gap 11, Blood Urea Nitrogen 4L, Creatinine 0.56L, Estimat Glomerular Filtration Rate > 60, BUN/Creatinine Ratio 7, Glucose Level 113H, Calcium Level 8.5, Corrected Calcium 8.9, Total Bilirubin 0.5, Aspartate Amino Transf (AST/SGOT) 13, Alanine Aminotransferase (ALT/SGPT) 13, Alkaline Phosphatase 100, Total Protein 6.3L, Albumin 3.5 Assessment/Plan Assessment/Plan Assess & Plan/Chief Complaint Trichomonas. Abdominal pain. Abdomen more rigid. Gastric ulcer. Flatplate and upright of the abdomen ordered Clinical Quality Measures Admission Status Admission Dx Abdominal pain left lower quadrant. Elevated alcohol level. Gastric ulcer. DVT/VTE Risk/Contraindication: Risk Factor Score Per Nursin RFS Level Per Nursing on Admit: 3=High Contraindications-Pharm: Other *list below* MARIO KAUR DO Sep 11, 2019 08:17
[2019-09-11] MEDS: THIAMINE INJECTION 100 MG, FOLIC ACID INJECTION 1 MG, MAGNESIUM SULFATE 2 GM, VITAMIN M... IV SCH ×5 (08:38)
[2019-09-11] MEDS: PANTOPRAZOLE 40 MG (PROTONIX) VIAL IV SCH ×2 (08:38→20:43)
[2019-09-11] MEDS: metroNIDAZOLE 500MG/100ML IVPB 100 ML IV SCH ×2 (08:38→13:03)
--- NOTE | 2019-09-11 08:47 | Progress Note - Surgery ---
[facility] [place] 09/11/19 0847: Subjective Date Seen by a Provider: Sep 11, 2019 Time Seen by a Provider: 08:25 Subjective/Events-last exam Patient states that she has generalized soreness, but that her abdominal pain is much better and rated it as an 0/10 but the pain does come in waves. Patient states that she had something to eat last evening, but has only had water since. Patient has been passing gas, but has not had a bowel movement. Review of Systems General: No Chills, No Other (fevers) Pulmonary: No Dyspnea Cardiovascular: No: Chest Pain, Palpitations Gastrointestinal: Abdominal Pain; No: Nausea, Vomiting Genitourinary: No Other (No complaints) Musculoskeletal: other (generalized soreness) Objective Exam Vital Signs Date Time Temp Pulse Resp B/P (MAP) Pulse Ox O2 Delivery O2 Flow Rate FiO2 09/11/19 08:08 97 Room Air 09/11/19 04:00 37.2 83 18 119/68 (85) 97 Room Air 09/10/19 23:35 37.7 77 18 101/55 (70) 95 Room Air 09/10/19 20:00 37.0 80 16 116/65 (82) 94 Room Air 09/10/19 20:00 Room Air 09/10/19 16:00 36.1 62 16 120/73 (89) 97 Room Air 09/10/19 13:50 59 18 100 Room Air 09/10/19 13:45 53 16 100 OxyMask 8 09/10/19 13:40 61 16 100 OxyMask 8 09/10/19 13:35 62 16 100 OxyMask 8 09/10/19 12:00 36.6 61 18 108/67 (81) 97 Room Air I & O 09/11/19 07:00 Intake Total 2000 ml Output Total 3500 ml Balance -1500 ml Capillary Refill : Less Than 3 SecondsLess Than 3 Seconds General Appearance: No Apparent Distress, Thin Neck: Tender Lateral Respiratory: Chest Non Tender, Lungs Clear, No Accessory Muscle Use, No Respiratory Distress Cardiovascular: Regular Rate, Rhythm, No Edema, No Murmur Peripheral Pulses: 2+ Radial Pulses (R), 2+ Radial Pulses (L) Gastrointestinal: guarding, tenderness (in the epigastric area) Extremity: Normal Inspection, No Calf Tenderness, No Pedal Edema Neurologic/Psychiatric: Alert, Oriented x3 Skin: Normal Color, Warm/Dry Results Lab Laboratory Tests 09/11/19 05:26: White Blood Count 15.2H, Red Blood Count 3.97L, Hemoglobin 13.1, Hematocrit 40, Mean Corpuscular Volume 101H, Mean Corpuscular Hemoglobin 33, Mean Corpuscular Hemoglobin Concent 33, Red Cell Distribution Width 11.6, Platelet Count 394, Mean Platelet Volume 9.6, Neutrophils (%) (Auto) 82H, Lymphocytes (%) (Auto) 10L , Monocytes (%) (Auto) 8, Eosinophils (%) (Auto) 0, Basophils (%) (Auto) 0, Neutrophils # (Auto) 12.5H, Lymphocytes # (Auto) 1.5, Monocytes # (Auto) 1.2H, Eosinophils # (Auto) 0.1, Basophils # (Auto) 0.0, Neutrophils % (Manual) 72, Lymphocytes % (Manual) 11, Monocytes % (Manual) 10, Eosinophils % (Manual) 1, Basophils % (Manual) 0, Band Neutrophils 6, Macrocytosis SLIGHT, Sodium Level 136, Potassium Level 3.7, Chloride Level 102, Carbon Dioxide Level 23, Anion Gap 11, Blood Urea Nitrogen 4L, Creatinine 0.56L, Estimat Glomerular Filtration Rate > 60, BUN/Creatinine Ratio 7, Glucose Level 113H, Calcium Level 8.5, Corrected Calcium 8.9, Total Bilirubin 0.5, Aspartate Amino Transf (AST/SGOT) 13, Alanine Aminotransferase (ALT/SGPT) 13, Alkaline Phosphatase 100, Total Protein 6.3L, Albumin 3.5 Assessment/Plan Assessment/Plan Assessment/Plan Trichomonas. Epigastric Abdominal pain. Gastric ulcer. 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 (smoking and alcohol) Continue PPI's, and antibiotics Clinical Quality Measures DVT/VTE Risk/Contraindication: Risk Factor Score Per Nursin RFS Level Per Nursing on Admit: 3=High Contraindications-Pharm: Other *list below* KAMILLE BENAVIDES DO 09/11/19 2220: Subjective Time Seen by a Provider: 13:02 Subjective/Events-last exam Pt seen and examined. State she doesn't have pain all over, just one spot in LUQ. Pt wants to eat more. Objective Exam Respiratory: Lungs Clear Gastrointestinal: guarding (voluntary), tenderness (more so LUQ to left mid abdomen) Assessment/Plan Assessment/Plan Assessment/Plan Gastric Ulcer Leukocytosis Looked at the X-ray, no free air. Pt told she must take the PPI and Carafate. Will obdulia labs in am and if WBC comes down pt probably ok to go home. Supervisory-Addendum Brief Verification & Attestation Participated in pt care: history, MDM, physical Personally performed: exam, history, MDM Care discussed with: Medical Student Procedures: n/a Verification and Attestation of Medical Student E/M Service A medical student performed and documented this service in my presence. I reviewed and verified all information documented by the medical student and made modifications to such information, when appropriate. I personally performed the physical exam and medical decision making. Kamille Benavides, Sep 11, 2019,22:20 [facility] Sep 11, 2019 08:47 KAMILLE BENAVIDES DO Sep 11, 2019 22:20
--- NOTE | 2019-09-11 09:59 | NUR ---
prior to a.m. medications b/p was 109/62 pulse was 81
--- NOTE | 2019-09-11 11:39 | Diagnostic Imaging Report ---
PATIENT HISTORY: Increased abdominal pain, rigid abdomen. TECHNIQUE: Upright and supine frontal views of the abdomen. COMPARISON: 09/09/2019 FINDINGS: There is a small to moderate amount of stool in the colon. There is gas throughout the small bowel, without significant distention to indicate obstruction. No large collection of free air seen. IMPRESSION: 1. Gas-filled loops of small bowel without significant distention. No large collection of free air. Dictated by: Dictated on workstation # [id number]
[2019-09-11 12:43] VITALS: BP 128/78
[2019-09-11] MEDS: HYDROcodone/APAP 5 MG/325 MG (LORTAB) TAB PO PRN ×2 (14:48→21:53)
[2019-09-11 16:06] VITALS: BP 105/59
[2019-09-11] MEDS ORDERED: metroNIDAZOLE 500 MG (FLAGYL) TAB PO NR (17:00)
[2019-09-11 20:03] VITALS: BP 101/62
[2019-09-12] VITALS: BP 103/64
[2019-09-12] MEDS: D5 1/2 NS W/KCL 20 MEQ/L 1,000 ML IV SCH ×3 (01:14→14:02)
[2019-09-12] MEDS: CIPROFLOXACIN 400 MG/D5W 200 ML (PRE-MIX) IV SCH ×2 (01:14→14:02)
[2019-09-12 04:24] VITALS: BP 122/75
[2019-09-12] MEDS: SUCRALFATE 1 GM (CARAFATE) TAB PO SCH ×2 (05:09→11:32)
[2019-09-12 05:36] LABS: HEMOGLOBIN 11.8 G/DL (11.5-16.0); MEAN PLATELET VOLUME 9.3 FL (7.4-10.4); RED CELL DISTRIBUTION WIDTH 11.6 % (10.0-14.5); WHITE BLOOD COUNT 10.4 10^3/uL (4.3-11.0)
[2019-09-12 06:22] LABS: ALANINE AMINOTRANSFERASE 11 U/L (0-55); ALBUMIN 3.1 GM/DL (3.2-4.5); ALKALINE PHOSPHATASE 110 U/L (40-136); BILIRUBIN,TOTAL 0.3 MG/DL (0.1-1.0); BUN/CREATININE RATIO 9; CALCIUM 8.1 MG/DL (8.5-10.1); CARBON DIOXIDE 24 MMOL/L (21-32); CHLORIDE 104 MMOL/L (98-107); CREATININE SERUM 0.57 MG/DL (0.60-1.30); GFR ESTIMATED > 60; GLUCOSE 111 MG/DL (70-105); POTASSIUM 4.4 MMOL/L (3.6-5.0); SODIUM 136 MMOL/L (135-145); TOTAL PROTEIN 5.6 GM/DL (6.4-8.2)
[2019-09-12 08:00] VITALS: BP 140/80
--- NOTE | 2019-09-12 08:22 | Progress Note ---
Subjective Time Seen by a Provider: 08:19 Subjective/Events-last exam Patient feeling better and doing better today. No abdominal pain. White blood cell count down to 10,000 better than yesterday. Patient afebrile. Patient eating good. Objective Exam Vital Signs Date Time Temp Pulse Resp B/P (MAP) Pulse Ox O2 Delivery O2 Flow Rate FiO2 09/12/19 04:24 36.7 66 18 122/75 (91) 96 Room Air 09/12/19 00:00 36.3 76 20 103/64 (77) 95 Room Air 09/11/19 20:45 Room Air 09/11/19 20:03 36.4 78 16 101/62 (75) 97 Room Air 09/11/19 16:06 37.2 91 16 105/59 (74) 98 Room Air 09/11/19 12:43 37.2 83 16 128/78 (95) 96 Room Air I & O 09/12/19 07:00 Intake Total 3550.2 ml Output Total 1900 ml Balance 1650.2 ml Capillary Refill : Less Than 3 SecondsLess Than 3 Seconds General Appearance: No Apparent Distress, WD/WN, Thin HEENT: Normal ENT Inspection Neck: Full Range of Motion, Normal Inspection Respiratory: Lungs Clear, No Accessory Muscle Use, No Respiratory Distress Cardiovascular: Regular Rate, Rhythm Gastrointestinal: non tender, soft Results Lab Laboratory Tests 09/12/19 04:55: White Blood Count 10.4, Red Blood Count 3.55L, Hemoglobin 11.8, Hematocrit 36, Mean Corpuscular Volume 102H, Mean Corpuscular Hemoglobin 33, Mean Corpuscular Hemoglobin Concent 33, Red Cell Distribution Width 11.6, Platelet Count 305, Mean Platelet Volume 9.3, Sodium Level 136, Potassium Level 4.4, Chloride Level 104, Carbon Dioxide Level 24, Anion Gap 8, Blood Urea Nitrogen 5L, Creatinine 0.57L, Estimat Glomerular Filtration Rate > 60, BUN/Creatinine Ratio 9, Glucose Level 111H, Calcium Level 8.1L, Corrected Calcium 8.8, Total Bilirubin 0.3, Aspartate Amino Transf (AST/SGOT) 14, Alanine Aminotransferase (ALT/SGPT) 11, Alkaline Phosphatase 110, Total Protein 5.6L, Albumin 3.1L Microbiology 09/10/19 MRSA Screen - Final, Complete MRSA not isolated Assessment/Plan Assessment/Plan Assess & Plan/Chief Complaint Trichomonas. Abdominal pain. Abdomen more rigid. Gastric ulcer. Flatplate and upright of the abdomen ordered. . 09/12/19. Abdominal pain. Gastric ulcer. Trichomonas Clinical Quality Measures Admission Status Admission Dx Abdominal pain left lower quadrant. Elevated alcohol level. Gastric ulcer. DVT/VTE Risk/Contraindication: Risk Factor Score Per Nursin RFS Level Per Nursing on Admit: 3=High Contraindications-Pharm: Other *list below* MARIO KAUR DO Sep 12, 2019 08:22
[2019-09-12] MEDS: PANTOPRAZOLE 40 MG (PROTONIX) VIAL IV SCH (08:58)
[2019-09-12] MEDS: THIAMINE INJECTION 100 MG, FOLIC ACID INJECTION 1 MG, MAGNESIUM SULFATE 2 GM, VITAMIN M... IV SCH ×5 (08:58)
--- NOTE | 2019-09-12 11:53 | Progress Note - Surgery ---
[facility] 09/12/19 1153: Subjective Date Seen by a Provider: Sep 12, 2019 Time Seen by a Provider: 07:40 Subjective/Events-last exam Patient is doing much better. Patient is tolerating diet well. Patient says that she is still experiencing pain, but describes it as muscle spasms and soreness. WBC is now down to 10.4. Review of Systems General: No Chills, No Other (fevers) Pulmonary: No Dyspnea; Cough (chronic due to smoking) Cardiovascular: No: Chest Pain, Palpitations, Edema Gastrointestinal: Abdominal Pain (mild); No: Nausea, Vomiting Objective Exam Vital Signs Date Time Temp Pulse Resp B/P (MAP) Pulse Ox O2 Delivery O2 Flow Rate FiO2 09/12/19 08:00 Room Air 09/12/19 08:00 37.0 79 20 140/80 (100) 97 Room Air 09/12/19 04:24 36.7 66 18 122/75 (91) 96 Room Air 09/12/19 00:00 36.3 76 20 103/64 (77) 95 Room Air 09/11/19 20:45 Room Air 09/11/19 20:03 36.4 78 16 101/62 (75) 97 Room Air 09/11/19 16:06 37.2 91 16 105/59 (74) 98 Room Air 09/11/19 12:43 37.2 83 16 128/78 (95) 96 Room Air I & O 09/12/19 07:00 Intake Total 3550.2 ml Output Total 1900 ml Balance 1650.2 ml Capillary Refill : Less Than 3 SecondsLess Than 3 Seconds General Appearance: No Apparent Distress, WD/WN, Thin Neck: Non Tender, Supple Respiratory: Chest Non Tender, Lungs Clear, No Accessory Muscle Use, No Respiratory Distress Cardiovascular: Regular Rate, Rhythm, No Murmur Peripheral Pulses: 2+ Radial Pulses (R), 2+ Radial Pulses (L) Gastrointestinal: soft, tenderness (slightly TTP in the epigastric area) Extremity: Normal Inspection, No Calf Tenderness, No Pedal Edema Neurologic/Psychiatric: Alert, Oriented x3 Skin: Normal Color, Warm/Dry Results Lab Laboratory Tests 09/12/19 04:55: White Blood Count 10.4, Red Blood Count 3.55L, Hemoglobin 11.8, Hematocrit 36, Mean Corpuscular Volume 102H, Mean Corpuscular Hemoglobin 33, Mean Corpuscular Hemoglobin Concent 33, Red Cell Distribution Width 11.6, Platelet Count 305, Mean Platelet Volume 9.3, Sodium Level 136, Potassium Level 4.4, Chloride Level 104, Carbon Dioxide Level 24, Anion Gap 8, Blood Urea Nitrogen 5L, Creatinine 0.57L, Estimat Glomerular Filtration Rate > 60, BUN/Creatinine Ratio 9, Glucose Level 111H, Calcium Level 8.1L, Corrected Calcium 8.8, Total Bilirubin 0.3, A spartate Amino Transf (AST/SGOT) 14, Alanine Aminotransferase (ALT/SGPT) 11, Alkaline Phosphatase 110, Total Protein 5.6L, Albumin 3.1L Microbiology 09/10/19 MRSA Screen - Final, Complete MRSA not isolated Assessment/Plan Assessment/Plan Assessment/Plan Trichomonas. Gastric ulcer Abdominal pain has decreased. Patient can be sent home later today Clinical Quality Measures DVT/VTE Risk/Contraindication: Risk Factor Score Per Nursin RFS Level Per Nursing on Admit: 3=High Contraindications-Pharm: Other *list below* JOSE ANGEL BENAVIDES DO 09/12/19 1716: Subjective Time Seen by a Provider: 16:26 Subjective/Events-last exam Pt seen and examined, states she is feeling better and tolerating diet. She wants to go home. Objective Exam Gastrointestinal: tenderness (slightly TTP in the epigastric area, improved compared to yesterday) Assessment/Plan Assessment/Plan Assessment/Plan Large gastric Ulcer Pt was told she must take PPI twice daily and the Carafate 4 times a day. If she does not she will almost certainly perforate the ulcer. Unfortunately it is still a possibility and we went over signs and symptoms of perforation. Pt will follow up in my office, needs colonoscopy as outpt. She had no questions and stated she would take all her meds. Supervisory-Addendum Brief Verification & Attestation Participated in pt care: history, MDM, physical Personally performed: exam, history, MDM Care discussed with: Medical Student Procedures: n/a Verification and Attestation of Medical Student E/M Service A medical student performed and documented this service in my presence. I reviewed and verified all information documented by the medical student and made modifications to such information, when appropriate. I personally performed the physical exam and medical decision making. Jose Angel Benavides, Sep 12, 2019,17:16 [facility] Sep 12, 2019 11:53 JOSE ANGEL BENAVIDES DO Sep 12, 2019 17:16
[2019-09-12 12:00] VITALS: BP 163/95
[2019-09-12 16:00] VITALS: BP 145/80
[2019-09-12] MEDS ORDERED: SUCR1TAB PO (17:03)
[2019-09-12] MEDS ORDERED: PANT40TA3 PO (17:03)
[2019-09-12] MEDS ORDERED: ACET325T38 PO (17:08)
--- NOTE | 2019-09-12 19:59 | Progress Note-Post Operative ---
Post-Operative Progess Note Surgeon (s)/Principal Ios Developer (s) Surgeon KAMILLE INMAN DO Principal Ios Developer: none Pre-Operative Diagnosis Gastric Wall thickening, Abdominal pain Post-Operative Diagnosis Gastric ulcer Gastritis Hiatal hernia Procedure & Operative Findings Date of Procedure 09/10/19 Procedure Performed/Findings EGD with bx Anesthesia Type IV sedation by CINDER PITMAN Estimated Blood Loss Estimated blood loss (mL): scant Specimens/Packing Specimens Removed biopsy of rim of ulcer KAMILLE INMAN DO Sep 12, 2019 19:59
[2019-09-12] MEDS ORDERED: PANTOPRAZOLE 40 MG (PROTONIX) TAB PO SCH (21:00)
--- NOTE | 2019-09-13 04:04 | OPERATIVE REPORT ---
DATE OF SERVICE: 09/10/2019 PREOPERATIVE DIAGNOSES: Gastric wall thickening and left upper quadrant pain. POSTOPERATIVE DIAGNOSES: 1. Gastric ulcer. 2. Gastritis. 3. Hiatal hernia. PROCEDURE: EGD with biopsy. SURGEON: Jose Angel Benavides DO. LINOTYPE MACHINIST: None. ANESTHESIA: IV sedation by the DEPUTY SHERIFF LIEUTENANT. SPECIMEN: Biopsy from the rim of the ulcer. BLOOD LOSS: Scant. FLUIDS: Per anesthesia. POSTOPERATIVE CONDITION: Stable. INDICATION FOR PROCEDURE: The patient is a 59-year-old female who had a gastric wall thickening with left upper quadrant pain and had a CAT scan, which was read by the radiologist as possibly impending perforation. FINDINGS: The patient had a very large gastric ulcer looked like it had healed, did not look like it perforated. There was no bleeding at this time. Also noted to have some mild gastritis and a hiatal hernia. PROCEDURE NOTE: After informed consent was obtained, the patient was brought to the endoscopy suite and placed on the bed in the left lateral decubitus position. She was administered IV sedation by the DEPUTY SHERIFF LIEUTENANT who then monitored her vitals the entire time, heart rate, blood pressure and pulse ox and the scope was inserted down the mouth through the esophagus into the stomach. Upon entering the stomach, noted some mild gastritis, did not really see the ulcer first, but then when pushed around the corner just in the prepyloric area, antrum, saw very large what looked like healed ulcer or at least healing ulcer, little bit of fibrinous covering, no active bleeding. Pushed into the duodenum. Duodenum looked fine, took a picture. Pulled back and then elected to do a biopsy of the rim of the ulcer, got 2 good pieces and then retroflexed the scope, saw a small hiatal hernia, took a picture of this and then suctioned out the air, pulled the scope up the esophagus and out the mouth. The patient tolerated the procedure. She was recovered in endoscopy suite. Job ID: [id number] DocumentID: [id number] Dictated Date: 09/12/2019 20:02:04 Machine Turner Date: 09/13/2019 04:02:45 Dictated By: JOSE ANGEL BENAVIDES DO
--- NOTE | 2019-09-13 07:25 | Discharge Summary ---
Diagnosis/Chief Complaint Date of Admission Sep 09, 2019 at 23:15 Date of Discharge Sep 12, 2019 at 17:20 Discharge Diagnosis Gastritis. Peptic ulcer disease with ventral antral ulceration. Abdominal pain left lower quadrant. Hiatal hernia. Alcoholic intoxication. Trichomonas area Nicotine dependence area Blood alcohol level between 100/119 Reason Hospital Visit Patient last night at 7 p.m. had severe left lower quadrant pain. Patient came out to the emergency room. CAT scan shows gastric ulcer. Previous surgeries appendectomy and tubal ligation. Family history mother diabetic in bed diabetic and cancer prostatic. This morning pain in the left lower quadrant. Patient never had EGD or colonoscopy. Patient did drink some beers yesterday Discharge Summary Procedures EGD Consultations Surgeon Discharge Physical Examination Allergies: Coded Allergies: No Known Drug Allergies (Verified , 05/02/08) Vitals & I&Os Vital Signs Date Time Temp Pulse Resp B/P (MAP) Pulse Ox O2 Delivery O2 Flow Rate FiO2 09/12/19 17:20 09/12/19 16:00 37.0 74 16 97 Room Air 09/10/19 13:45 8 Hospital Course Patient felt better on discharge. Stop aspirin and Motrin Labs (last 24 hrs) Laboratory Tests 09/09/19 21:15: White Blood Count 9.6, Red Blood Count 3.93L, Hemoglobin 13.6, Hematocrit 39, Mean Corpuscular Volume 99, Mean Corpuscular Hemoglobin 35H, Mean Corpuscular Hemoglobin Concent 35, Red Cell Distribution Width 11.4, Platelet Count 373, Mean Platelet Volume 9.2, Neutrophils (%) (Auto) 61, Lymphocytes (%) (Auto) 30, Monocytes (%) (Auto) 7, Eosinophils (%) (Auto) 2, Basophils (%) (Auto) 0, Neutrophils # (Auto) 5.8, Lymphocytes # (Auto) 2.9, Monocytes # (Auto) 0.7, Eosi nophils # (Auto) 0.2, Basophils # (Auto) 0.0, Prothrombin Time 12.9, INR Comment 0.9, Activated Partial Thromboplast Time 29, Sodium Level 135, Potassium Level 3.7, Chloride Level 100, Carbon Dioxide Level 25, Anion Gap 10, Blood Urea Nitrogen 16, Creatinine 0.61, Estimat Glomerular Filtration Rate > 60, BUN/Creatinine Ratio 26, Glucose Level 86, Calcium Level 8.8, Corrected Calcium 8.8, Magnesium Level 1.9, Total Bilirubin 0.2, Aspartate Amino Transf (AST/SGOT) 15, Alanine Aminotransferase (ALT/SGPT) 16, Alkaline Phosphatase 126, Total Protein 6.8, Albumin 4.0, Amylase Level 56, Lipase 23, Acetaminophen Level < 10L , Serum Alcohol 118H 09/09/19 21:30: Urine Color YELLOW, Urine Clarity CLEAR, Urine pH 5, Urine Specific [place] 1.015L, Urine Protein NEGATIVE, Urine Glucose (UA) NEGATIVE, Urine Ketones NEGATIVE, Urine Nitrite NEGATIVE, Urine Bilirubin NEGATIVE, Urine Urobilinogen NORMAL, Urine Leukocyte Esterase 2+H, Urine RBC (Auto) NEGATIVE, Urine RBC NONE, Urine WBC 5-10H, Urine Squamous Epithelial Cells 10-25H, Urine Crystals NONE, Urine Bacteria TRACE, Urine Casts NONE, Urine Mucus MODERATEH, Urine Trichomonas LARGEH, Urine Culture Indicated NO, Urine Opiates Screen NEGATIVE, Urine Oxycodone Screen NEGATIVE, Urine Methadone Screen NEGATIVE, Urine Propoxyphene Screen NEGATIVE, Urine Barbiturates Screen NEGATIVE, Ur Tricyclic Antidepressants Screen NEGATIVE, Urine Phencyclidine Screen NEGATIVE, Urine Amphetamines Screen NEGATIVE, Urine Methamphetamines Screen NEGATIVE, Urine Benzodiazepines Screen NEGATIVE, Urine Cocaine Screen NEGATIVE, Urine Cannabinoids Screen NEGATIVE 09/10/19 05:45: White Blood Count 10.5, Red Blood Count 3.71L, Hemoglobin 12.5, Hematocrit 37, Mean Corpuscular Volume 100H, Mean Corpuscular Hemoglobin 34, Mean Corpuscular Hemoglobin Concent 34, Red Cell Distribution Width 11.5, Platelet Count 327, Mean Platelet Volume 9.2, Neutrophils (%) (Auto) 81H, Lymphocytes (%) (Auto) 12, Monocytes (%) (Auto) 6, Eosinophils (%) (Auto) 1, Basophils (%) (Auto) 0, Neutrophils # (Auto) 8.5H, Lymphocytes # (Auto) 1.2, Monocytes # (Auto) 0.6, Eosinophils # (Auto) 0.1, Basophils # (Auto) 0.0, Sodium Level 134L, Potassium Level 3.8, Chloride Level 103, Carbon Dioxide Level 23, Anion Gap 8, Blood Urea Nitrogen 12, Creatinine 0.57L, Estimat Glomerular Filtration Rate > 60, BUN/Creatinine Ratio 21, Glucose Level 123H, Calcium Level 8.0L, Corrected Calcium 8.5, Total Bilirubin 0.4, Aspartate Amino Transf (AST/SGOT) 13, Alanine Aminotransferase (ALT/SGPT) 14, Alkaline Phosphatase 111, Total Protein 5.8L, Albumin 3.4 09/11/19 05:26: White Blood Count 15.2H, Red Blood Count 3.97L, Hemoglobin 13.1, Hematocrit 40, Mean Corpuscular Volume 101H, Mean Corpuscular Hemoglobin 33, Mean Corpuscular Hemoglobin Concent 33, Red Cell Distribution Width 11.6, Platelet Count 394, Mean Platelet Volume 9.6, Neutrophils (%) (Auto) 82H, Lymphocytes (%) (Auto) 10L , Monocytes (%) (Auto) 8, Eosinophils (%) (Auto) 0, Basophils (%) (Auto) 0, Neutrophils # (Auto) 12.5H, Lymphocytes # (Auto) 1.5, Monocytes # (Auto) 1.2H, Eosinophils # (Auto) 0.1, Basophils # (Auto) 0.0, Sodium Level 136, Potassium Level 3.7, Chloride Level 102, Carbon Dioxide Level 23, Anion Gap 11, Blood Urea Nitrogen 4L, Creatinine 0.56L, Estimat Glomerular Filtration Rate > 60, BUN/Creatinine Ratio 7, Glucose Level 113H, Calcium Level 8.5, Corrected Calcium 8.9, Total Bilirubin 0.5, Aspartate Amino Transf (AST/SGOT) 13, Alanine Aminotransferase (ALT/SGPT) 13, Alkaline Phosphatase 100, Total Protein 6.3L, Albumin 3.5, Neutrophils % (Manual) 72, Lymphocytes % (Manual) 11, Monocytes % (Manual) 10, Eosinophils % (Manual) 1, Basophils % (Manual) 0, Band Neutrophils 6, Macrocytosis SLIGHT 09/12/19 04:55: White Blood Count 10.4, Red Blood Count 3.55L, Hemoglobin 11.8, Hematocrit 36, Mean Corpuscular Volume 102H, Mean Corpuscular Hemoglobin 33, Mean Corpuscular Hemoglobin Concent 33, Red Cell Distribution Width 11.6, Platelet Count 305, Mean Platelet Volume 9.3, Sodium Level 136, Potassium Level 4.4, Chloride Level 104, Carbon Dioxide Level 24, Anion Gap 8, Blood Urea Nitrogen 5L, Creatinine 0.57L, Estimat Glomerular Filtration Rate > 60, BUN/Creatinine Ratio 9, Glucose Level 111H, Calcium Level 8.1L, Corrected Calcium 8.8, Total Bilirubin 0.3, Aspartate Amino Transf (AST/SGOT) 14, Alanine Aminotransferase (ALT/SGPT) 11, Alkaline Phosphatase 110, Total Protein 5.6L, Albumin 3.1L Microbiology 09/10/19 MRSA Screen - Final, Complete MRSA not isolated Laboratory Tests 09/09/19 21:15 09/10/19 05:45 09/11/19 05:26 09/12/19 04:55 Pending Labs Microbiology Date/Time Source Procedure Growth Status 09/10/19 12:18 Nasal MRSA Screen - Final MRSA not isolated Complete Laboratory Tests 09/09/19 21:15: White Blood Count 9.6, Red Blood Count 3.93, Hemoglobin 13.6, Hematocrit 39, Mean Corpuscular Volume 99, Mean Corpuscular Hemoglobin 35, Mean Corpuscular Hemoglobin Concent 35, Red Cell Distribution Width 11.4, Platelet Count 373, Mean Platelet Volume 9.2, Neutrophils (%) (Auto) 61, Lymphocytes (%) (Auto) 30, Monocytes (%) (Auto) 7, Eosinophils (%) (Auto) 2, Basophils (%) (Auto) 0, Neutrophils # (Auto) 5.8, Lymphocytes # (Auto) 2.9, Monocytes # (Auto) 0.7, Eosinophils # (Auto) 0.2, Basophils # (Auto) 0.0, Prothrombin Time 12.9, INR Comment 0.9, Activated Partial Thromboplast Time 29, Sodium Level 135, Potassium Level 3.7, Chloride Level 100, Carbon Dioxide Level 25, Anion Gap 10, Blood Urea Nitrogen 16, Creatinine 0.61, Estimat Glomerular Filtration Rate > 60, BUN/Cr eatinine Ratio 26, Glucose Level 86, Calcium Level 8.8, Corrected Calcium 8.8, Magnesium Level 1.9, Total Bilirubin 0.2, Aspartate Amino Transf (AST/SGOT) 15, Alanine Aminotransferase (ALT/SGPT) 16, Alkaline Phosphatase 126, Total Protein 6.8, Albumin 4.0, Amylase Level 56, Lipase 23, Acetaminophen Level < 10, Serum Alcohol 118 09/09/19 21:30: Urine Color YELLOW, Urine Clarity CLEAR, Urine pH 5, Urine Specific [place] 1.015, Urine Protein NEGATIVE, Urine Glucose (UA) NEGATIVE, Urine Ketones NEGATIVE, Urine Nitrite NEGATIVE, Urine Bilirubin NEGATIVE, Urine Urobilinogen NORMAL, Urine Leukocyte Esterase 2+, Urine RBC (Auto) NEGATIVE, Urine RBC NONE, Urine WBC 5-10, Urine Squamous Epithelial Cells 10-25, Urine Crystals NONE, Urine Bacteria TRACE, Urine Casts NONE, Urine Mucus MODERATE, Urine Trichomonas LARGE, Urine Culture Indicated NO, Urine Opiates Screen NEGATIVE, Urine Oxycodone Screen NEGATIVE, Urine Methadone Screen NEGATIVE, Urine Propoxyphene Screen NEGATIVE, Urine Barbiturates Screen NEGATIVE, Ur Tricyclic Antidepressants Screen NEGATIVE, Urine Phencyclidine Screen NEGATIVE, Urine Amphetamines Screen NEGATIVE, Urine Methamphetamines Screen NEGATIVE, Urine Benzodiazepines Screen NEGATIVE, Urine Cocaine Screen NEGATIVE, Urine Cannabinoids Screen NEGATIVE 09/10/19 05:45: White Blood Count 10.5, Red Blood Count 3.71, Hemoglobin 12.5, Hematocrit 37, Mean Corpuscular Volume 100, Mean Corpuscular Hemoglobin 34, Mean Corpuscular Hemoglobin Concent 34, Red Cell Distribution Width 11.5, Platelet Count 327, Mean Platelet Volume 9.2, Neutrophils (%) (Auto) 81, Lymphocytes (%) (Auto) 12, Monocytes (%) (Auto) 6, Eosinophils (%) (Auto) 1, Basophils (%) (Auto) 0, Neutrophils # (Auto) 8.5, Lymphocytes # (Auto) 1.2, Monocytes # (Auto) 0.6, Eosinophils # (Auto) 0.1, Basophils # (Auto) 0.0, Sodium Level 134, Potassium Level 3.8, Chloride Level 103, Carbon Dioxide Level 23, Anion Gap 8, Blood Urea Nitrogen 12, Creatinine 0.57, Estimat Glomerular Filtration Rate > 60, BUN/Creatinine Ratio 21, Glucose Level 123, Calcium Level 8.0, Corrected Calcium 8.5, Total Bilirubin 0.4, Aspartate Amino Transf (AST/SGOT) 13, Alanine Aminotransferase (ALT/SGPT) 14, Alkaline Phosphatase 111, Total Protein 5.8, Albumin 3.4 09/11/19 05:26: White Blood Count 15.2, Red Blood Count 3.97, Hemoglobin 13.1, Hematocrit 40, Mean Corpuscular Volume 101, Mean Corpuscular Hemoglobin 33, Mean Corpuscular Hemoglobin Concent 33, Red Cell Distribution Width 11.6, Platelet Count 394, Mean Platelet Volume 9.6, Neutrophils (%) (Auto) 82, Lymphocytes (%) (Auto) 10, Monocytes (%) (Auto) 8, Eosinophils (%) (Auto) 0, Basophils (%) (Auto) 0, Ne utrophils # (Auto) 12.5, Lymphocytes # (Auto) 1.5, Monocytes # (Auto) 1.2, Eosinophils # (Auto) 0.1, Basophils # (Auto) 0.0, Sodium Level 136, Potassium Level 3.7, Chloride Level 102, Carbon Dioxide Level 23, Anion Gap 11, Blood Urea Nitrogen 4, Creatinine 0.56, Estimat Glomerular Filtration Rate > 60, BUN/Creatinine Ratio 7, Glucose Level 113, Calcium Level 8.5, Corrected Calcium 8.9, Total Bilirubin 0.5, Aspartate Amino Transf (AST/SGOT) 13, Alanine Aminotransferase (ALT/SGPT) 13, Alkaline Phosphatase 100, Total Protein 6.3, Albumin 3.5, Neutrophils % (Manual) 72, Lymphocytes % (Manual) 11, Monocytes % (Manual) 10, Eosinophils % (Manual) 1, Basophils % (Manual) 0, Band Neutrophils 6, Macrocytosis SLIGHT 09/12/19 04:55: White Blood Count 10.4, Red Blood Count 3.55, Hemoglobin 11.8, Hematocrit 36, Mean Corpuscular Volume 102, Mean Corpuscular Hemoglobin 33, Mean Corpuscular Hemoglobin Concent 33, Red Cell Distribution Width 11.6, Platelet Count 305, Mean Platelet Volume 9.3, Sodium Level 136, Potassium Level 4.4, Chloride Level 104, Carbon Dioxide Level 24, Anion Gap 8, Blood Urea Nitrogen 5, Creatinine 0.57, Estimat Glomerular Filtration Rate > 60, BUN/Creatinine Ratio 9, Glucose Level 111, Calcium Level 8.1, Corrected Calcium 8.8, Total Bilirubin 0.3, Aspa rtate Amino Transf (AST/SGOT) 14, Alanine Aminotransferase (ALT/SGPT) 11, Alkaline Phosphatase 110, Total Protein 5.6, Albumin 3.1 Discharge Home Medications: Active Scripts Active Tylenol (Acetaminophen) 325 Mg Tablet 650 Mg PO Q4H PRN 30 Days Pantoprazole Sodium 40 Mg Tablet.dr 40 Mg PO BID 30 Days Sucralfate 1 Gm Tablet 1 Gm PO ACHS 30 Days Reported Multivitamins (Multivitamin) 1 Each Capsule 1 Each PO DAILY [place]-600 W/Vit D Tablet (Calcium/Vitamin D) 1 Tab Tablet Instructions to patient/family Please see electronic discharge instructions given to patient. Clinical Quality Measures DVT/VTE Risk/Contraindication: Risk Factor Score Per Nursin RFS Level Per Nursing on Admit: 3=High Contraindications-Pharm: Other *list below* MARIO KAUR DO Sep 13, 2019 07:25
== END 2019-09-12 17:20 | disposition home or self-care (01) | DRG 384 ==
LOC: ER 20:47 → MERGE 23:15 → 4TH 23:15
PROVIDERS: ADMIT Internal Medicine; ATTEND Family Medicine
PROC: 0DB78ZX Excision of Stomach, Pylorus, Via Natural or Artificial Opening Endoscopic, Diagnostic (ICD-10-PCS; principal; 2019-09-10 13:18)
DX: K25.9 Gastric ulcer, unspecified as acute or chronic, without hemorrhage or perforation (principal); K29.50 Unspecified chronic gastritis without bleeding; K44.9 Diaphragmatic hernia without obstruction or gangrene; A59.00 Urogenital trichomoniasis, unspecified; F17.210 Nicotine dependence, cigarettes, uncomplicated; F10.229 Alcohol dependence with intoxication, unspecified; Y90.5 Blood alcohol level of 100-119 mg/100 ml; Z95.5 Presence of coronary angioplasty implant and graft
CPT/HCPCS: 36415; 71045; 74019; 74022; 74176; 80053; 80306; 80320; 80329; 81000; 82150; 83690; 83735; 85007; 85025; 85027; 85610; 85730; 87081; 88305; 88342

== ENCOUNTER → 2019-12-31 | Outpatient (CLI) | payer MEDICARE, OTHER ==
[~2019-12-31] VITALS: Ht 170.2 cm; Wt 49.5 kg
[~2019-12-31] MED LIST changes: +ACET325T38 PO; +ASPI-586 PO; +GADOBUTROL 7.5 MMOL/7.5 ML (GADAVIST) VIAL IV ONE; +IBUP-2473 PO; +IOHEXOL 300 MG/ML 50 ML (OMNIPAQUE 300) VIAL IV ONE; +MULT1CAP27 PO; +PANT40TA3 PO; +SUCR1TAB PO
[2019-12-31 13:21] LABS: BUN/CREATININE RATIO 20; CREATININE SERUM 0.71 MG/DL (0.60-1.30); GFR ESTIMATED > 60
--- NOTE | 2019-12-31 15:10 | Diagnostic Imaging Report ---
INDICATION: Shoulder pain. PROCEDURE: The patient was placed on the table in the supine position. The patient's shoulder was prepped and draped in the usual sterile fashion. Local anesthesia was obtained with 2% lidocaine. A needle was advanced into the glenohumeral joint under fluoroscopic control. A mixture of saline, Omnipaque and gadolinium was then infused. The needle was removed and adequate hemostasis was obtained. The patient tolerated the procedure well and left the department in stable condition. IMPRESSION: Successful shoulder injection prior to MRI, as described above. Dictated by: Dictated on workstation # [id number]
--- NOTE | 2019-12-31 16:08 | Diagnostic Imaging Report ---
PROCEDURE: CT right upper extremity with contrast. TECHNIQUE: Axial images were obtained through the right upper extremity after intravenous contrast and reformatted into coronal and sagittal oblique planes. Auto Exposure Controls were utilized during the CT exam to meet ALARA standards for radiation dose reduction. INDICATION: Right shoulder pain. COMPARISON: None available. FINDINGS: ROTATOR CUFF: There is no full-thickness rotator cuff tear. No high-grade articular sided tearing of the rotator cuff. No rotator cuff muscle atrophy. LONG HEAD OF BICEPS: Long head of biceps has a normal extracapsular position and its intracapsular segment remains intact. GLENOID LABRUM: Glenoid labrum has a normal triangular morphology without superimposed tear. BONES AND CARTILAGE: There is partial thickness chondromalacia in the inferior aspect of the glenohumeral joint. No fracture or concerning focal osseous lesion. No hypertrophic degenerative arthritis of the acromioclavicular joint. SOFT TISSUES: No features of proliferative synovitis. Emphysema is present throughout the visualized aspects of the right lung. No right axillary lymphadenopathy. IMPRESSION: 1. CT arthrogram was performed as patient refused MRI examination after arthrogram injection. 2. No full-thickness or articular sided rotator cuff tear. 3. Long head of biceps remains intact. 4. No glenoid labral tear. Dictated by: Dictated on workstation # [id number]
== END ==
LOC: RAD 12:53
PROVIDERS: ATTEND Nurse Practitioner Family
DX: S43.421A Sprain of right rotator cuff capsule, initial encounter (principal); K25.9 Gastric ulcer, unspecified as acute or chronic, without hemorrhage or perforation
CPT/HCPCS: 23350; 36415; 73040; 73201; 82565; 84520

== ENCOUNTER → 2023-01-03 | Outpatient (CLI) | payer MEDICARE, OTHER ==
[~2023-01-03] MED LIST changes: -GADOBUTROL 7.5 MMOL/7.5 ML (GADAVIST) VIAL IV ONE; -IOHEXOL 300 MG/ML 50 ML (OMNIPAQUE 300) VIAL IV ONE; -PANT40TA3 PO; +PANT40TA52 PO
--- NOTE | 2023-01-03 12:58 | Diagnostic Imaging Report ---
INDICATION: Routine screening. COMPARISON: No prior studies are available for comparison. TECHNIQUE: 2D and 3D bilateral screening mammography was performed with CAD. FINDINGS: Both breasts are heterogeneously dense, limiting the sensitivity of mammography. No spiculated mass or malignant-appearing microcalcifications are seen. There are vascular calcifications bilaterally. Axillae are unremarkable. IMPRESSION: No mammographic features suspicious for malignancy are identified. ACR BI-RADS Category 1: Negative. Result letter will be mailed to the patient. Note: At least 10% of breast cancer is not imaged by mammography. Dictated by: Dictated on workstation # [id number]
== END ==
LOC: RAD 09:53
PROVIDERS: ATTEND Family Medicine
DX: Z12.31 Encounter for screening mammogram for malignant neoplasm of breast (principal)
CPT/HCPCS: 77063; 77067

== ENCOUNTER → 2023-07-20 | Outpatient (CLI) | payer OTHER ==
--- NOTE | 2023-07-21 08:37 | Diagnostic Imaging Report ---
Indication: 62-year-old female with right hip pain after being sedentary for a considerable length of time Comparisons: None FINDINGS: AP and frog-leg lateral view of the right hip show no evidence of new or healing fractures, bony destruction or remodeling. The right femoral head appears well-seated within the right acetabular. IMPRESSION: No fracture or subluxation seen. Dictated by: Dictated on workstation # [id number]
== END ==
LOC: RAD 12:23
PROVIDERS: ATTEND Family Medicine
DX: M25.551 Pain in right hip (principal)
CPT/HCPCS: 73502